=== PATIENT | male | born 1965 | race Caucasian/White ===

== ENCOUNTER 2019-09-25 10:39 | Inpatient (IN) | payer OTHER ==
[2019-09-25 11:42] VITALS: BMI 28.3
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
[2019-09-25] MEDS ORDERED: hydrOXYzine PAMOATE 25 MG CAPSULE (FP) PO PRN (12:40)
[2019-09-25] MEDS ORDERED: MAGNESIUM CITRATE 300 ML BOTTLE PO PRN (12:40)
[2019-09-25] MEDS ORDERED: MAGNESIUM HYDROX 2400MG/30ML ORAL SUSPENSION 30 ML CUP PO PRN (12:40)
[2019-09-25] MEDS ORDERED: cloNIDine HCL 0.1 MG TABLET PO PRN (12:40)
[2019-09-25] MEDS ORDERED: LOPERAMIDE HCL 2 MG CAPSULE PO PRN (12:40)
[2019-09-25] MEDS ORDERED: IBUPROFEN 400 MG TABLET (FP) PO PRN (12:40)
[2019-09-25] MEDS ORDERED: chlordiazePOXIDE HCL 25 MG CAPSULE PO PRN (12:40)
[2019-09-25] MEDS ORDERED: MAG HYDROX/AL HYDROX/SIMETH 30 ML UNIT-DOSE CUP PO PRN (12:40)
[2019-09-25] MEDS ORDERED: METHADONE HCL 10 MG TABLET (FOR DETOX USE ONLY) PO ONE ×2 (12:40→13:40)
[2019-09-25] MEDS ORDERED: guaiFENesin 200 MG/10 ML 10 ML UNIT-DOSE CUPS PO PRN (12:40)
[2019-09-25] MEDS ORDERED: P-EPHED 60MG/TRIPROLIDI 2.5MG TABLET PO PRN (12:40)
[2019-09-25] MEDS ORDERED: ACETAMINOPHEN 325 MG TABLET (FP) PO PRN (12:40)
[2019-09-25] MEDS ORDERED: MENTHOL/PHENOL 1 EACH UD MM PRN (12:40)
[2019-09-25] MEDS ORDERED: NICOTINE POLACRILEX 2 MG GUM BUC PRN (12:40)
[2019-09-25] MEDS ORDERED: HYDROCORTISONE 1% TOPICAL OINT 30 GM TUBE TP PRN (13:17)
[2019-09-25] MEDS: chlordiazePOXIDE HCL 25 MG CAPSULE PO SCH ×2 (18:07→22:42)
[2019-09-25] MEDS: TOLNAFTATE 1% CREAM 15 GM TUBE TP SCH (22:41)
[2019-09-25] MEDS: MELATONIN 5 MG TABLETS PO PRN (22:42)
[2019-09-25] MEDS: THIAMINE HCL 100 MG TABLET (FP) PO SCH (22:42)
[2019-09-26] MEDS: chlordiazePOXIDE HCL 25 MG CAPSULE PO SCH ×4 (05:52→22:23)
[2019-09-26 09:34] LABS: HEMATOCRIT 40.4 % (35.4-49); HEMOGLOBIN 13.8 GM/dL (11.7-16.9); MCH 31.5 pg (25.7-33.7); MCHC 34.1 g/dl (32.0-35.9); MEAN CELL VOLUME 92.3 fl (80-96); MEAN PLT VOLUME 9.1 fl (7.5-11.1); PLATELET COUNT 211 K/MM3 (134-434); RBC 4.37 M/mm3 (4.00-5.60); RDW 13.2 % (11.9-15.9); WHITE BLOOD COUNT 6.7 K/mm3 (4.0-10.0)
[2019-09-26 09:45] LABS: ALBUMIN 3.3 g/dl (3.4-5.0); BILIRUBIN,TOTAL 0.5 mg/dL (0.2-1); BLOOD UREA NITROGEN 12.1 mg/dL (7-18); CALCIUM 8.7 mg/dL (8.5-10.1); CREATININE 0.6 mg/dL (0.55-1.3); POTASSIUM 3.9 mmol/L (3.5-5.1); TOT PROT 6.1 g/dl (6.4-8.2)
[2019-09-26] MEDS ORDERED: METHADONE HCL 5 MG TABLET (FOR DETOX USE ONLY) PO ONE (10:00)
[2019-09-26] MEDS: PRENATAL VITAMINS W/ FOLIC ACID TABLET (FP) PO SCH (10:56)
[2019-09-26] MEDS: TOLNAFTATE 1% CREAM 15 GM TUBE TP SCH ×2 (10:57→22:24)
[2019-09-26] MEDS: NICOTINE 14 MG/24 HOURS TOPICAL PATCH TD SCH (10:57)
--- NOTE | 2019-09-26 13:21 | PN ---
[facility] CIWA - CIWA Score Nausea/Vomitin-Mild Nausea/No Vomiting Muscle Tremors: 3 Anxiety: 3 Agitation: 2 Paroxysmal Sweats: 3 Orientation: 0-Oriented Tacttile Disturbances: 0-None Auditory Disturbances: 0-None Visual Disturbances: 0-None Headache: 0-None Present CIWA-Ar Total Score: 12 S COWS - Scale Resting Pulse: 1= [place] 81-100 Sweatin= Chills/Flushing Restless Observation: 1= Difficult to Sit Still Pupil Size: 0= Normal to Room Light Bone or Joint Aches: 2= Severe Diffuse Aches Runny Nose/ Eye Tearin= Runny Nose/Eyes GI Upset > 30mins: 1= Stomach Cramp Tremor Observation of Outstretched Hands: 2= Slight Tremor Visible Yawning Observation: 0= None Anxiety or Irritability: 2=Irritable/Anxious Goose Flesh Skin: 0=Smooth Skin COWS Score: 12 S Progress Note (SOAP) Subjective: Diarrhea, chills, sweating, interrupted sleep Objective: 09/26/19 13:20 Last Vital Signs Temp Pulse Resp BP Pulse Ox 98.2 F 86 20 131/84 09/26/19 09:32 09/26/19 09:32 09/26/19 09:32 09/26/19 09:32 Elevated b/p: denies htn (on clonidine prn) Laboratory Tests 09/26/19 09/26/19 09/26/19 07:50 07:50 07:50 WBC 6.7 RBC 4.37 Hgb 13.8 Hct 40.4 MCV 92.3 MCH 31.5 MCHC 34.1 RDW 13.2 Plt Count 211 MPV 9.1 Sodium 137 Potassium 3.9 Chloride 103 Carbon Dioxide 29 Anion Gap 5 L BUN 12.1 Creatinine 0.6 Est GFR (CKD-EPI)AfAm 132.11 Est GFR (CKD-EPI)NonAf 113.99 Random Glucose 96 Calcium 8.7 Total Bilirubin 0.5 AST 14 L ALT 21 Alkaline Phosphatase 74 Total Protein 6.1 L Albumin 3.3 L RPR Titer Nonreactive Labs reviewed: total protein 6.1 (low), albumin 3.3 (low) Assessment: 09/26/19 13:23 Withdrawal sxs Noted with elevated b/p, low total protein and low albumin Plan: Continue detox Encouraged PO water intake Elevated b/p: most likely r/t withdrawal as pt denies any h/o HTN, monitor b/p, continue clonidine prn Low total protein and low albumin, mild: encouraged diet
--- NOTE | 2019-09-26 17:03 | CONSULT ---
[facility] Psychiatric Consult - Data Date of interview: 09/26/19 Psychiatric History: Patient was approached at bedside while asleep. 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 Please reconsult when patient is appropriate for interview
[2019-09-26] MEDS: THIAMINE HCL 100 MG TABLET (FP) PO SCH (22:23)
[2019-09-26] MEDS: MELATONIN 5 MG TABLETS PO PRN (22:26)
[2019-09-27] MEDS: chlordiazePOXIDE HCL 25 MG CAPSULE PO SCH ×4 (05:44→22:35)
[2019-09-27] MEDS ORDERED: METHADONE HCL 10 MG TABLET (FOR DETOX USE ONLY) PO ONE (10:00)
[2019-09-27] MEDS: PRENATAL VITAMINS W/ FOLIC ACID TABLET (FP) PO SCH (10:33)
[2019-09-27] MEDS: TOLNAFTATE 1% CREAM 15 GM TUBE TP SCH ×2 (10:35→22:39)
[2019-09-27] MEDS: NICOTINE 14 MG/24 HOURS TOPICAL PATCH TD SCH (10:35)
--- NOTE | 2019-09-27 11:04 | EKG ---
Test Reason : Blood Pressure : / mmHG Vent. Rate : 053 BPM Atrial Rate : 053 BPM P-R Int : 162 ms QRS Dur : 094 ms QT Int : 422 ms P-R-T Axes : 070 053 045 degrees QTc Int : 395 ms SINUS BRADYCARDIA OTHERWISE NORMAL ECG NO PREVIOUS ECGS AVAILABLE Confirmed by SOPHIE TARANGO MD ([id number]) on 09/27/2019 11:04:30 AM Referred By: Confirmed By:SOPHIE TARANGO MD
--- NOTE | 2019-09-27 11:34 | PN ---
[facility] CIWA - CIWA Score Nausea/Vomitin-Mild Nausea/No Vomiting Muscle Tremors: 1-None Visible, but [place] Anxiety: 2 Agitation: 2 Paroxysmal Sweats: No Perspiration Orientation: 0-Oriented Tacttile Disturbances: 1-Very Mild Itch/Numbness Auditory Disturbances: 0-None Visual Disturbances: 0-None Headache: 1-Very Mild CIWA-Ar Total Score: 8 S COWS - Scale Resting Pulse: 1= [place] 81-100 Sweatin= No chills or Flushing Restless Observation: 1= Difficult to Sit Still Pupil Size: 1= Pupils >than Normal Bone or Joint Aches: 1= Mild Discomfort Runny Nose/ Eye Tearin= Nasal Congestion GI Upset > 30mins: 1= Stomach Cramp Tremor Observation of Outstretched Hands: 1= Tremor [place], Not Seen Yawning Observation: 1= 1-2x During Session Anxiety or Irritability: 2=Irritable/Anxious Goose Flesh Skin: 0=Smooth Skin COWS Score: 10 [facility] Progress Note (SOAP) Subjective: alert,irritable,anxious,interrupted sleep,tremor Objective: 09/27/19 11:32 Vital Signs Temperature 98.4 F 09/27/19 09:18 Pulse Rate 97 H 09/27/19 09:18 Respiratory Rate 16 09/27/19 09:18 Blood Pressure 105/66 09/27/19 09:18 O2 Sat by Pulse Oximetry (%) 09/27/19 11:33 Laboratory Last Values WBC 6.7 K/mm3 (4.0-10.0) 09/26/19 07:50 RBC 4.37 M/mm3 (4.00-5.60) 09/26/19 07:50 Hgb 13.8 GM/dL (11.7-16.9) 09/26/19 07:50 Hct 40.4 % (35.4-49) 09/26/19 07:50 MCV 92.3 fl (80-96) 09/26/19 07:50 MCH 31.5 pg (25.7-33.7) 09/26/19 07:50 MCHC 34.1 g/dl (32.0-35.9) 09/26/19 07:50 RDW 13.2 % (11.9-15.9) 09/26/19 07:50 Plt Count 211 K/MM3 (134-434) 09/26/19 07:50 MPV 9.1 fl (7.5-11.1) 09/26/19 07:50 Sodium 137 mmol/L (136-145) 09/26/19 07:50 Potassium 3.9 mmol/L (3.5-5.1) 09/26/19 07:50 Chloride 103 mmol/L (98-107) 09/26/19 07:50 Carbon Dioxide 29 mmol/L (21-32) 09/26/19 07:50 Anion Gap 5 MMOL/L (8-16) L 09/26/19 07:50 BUN 12.1 mg/dL (7-18) 09/26/19 07:50 Creatinine 0.6 mg/dL (0.55-1.3) 09/26/19 07:50 Est GFR (CKD-EPI)AfAm 132.11 09/26/19 07:50 Est GFR (CKD-EPI)NonAf 113.99 09/26/19 07:50 Random Glucose 96 mg/dL (74-106) 09/26/19 07:50 Calcium 8.7 mg/dL (8.5-10.1) 09/26/19 07:50 Total Bilirubin 0.5 mg/dL (0.2-1) 09/26/19 07:50 AST 14 U/L (15-37) L 09/26/19 07:50 ALT 21 U/L (13-61) 09/26/19 07:50 Alkaline Phosphatase 74 U/L (45-117) 09/26/19 07:50 Total Protein 6.1 g/dl (6.4-8.2) L 09/26/19 07:50 Albumin 3.3 g/dl (3.4-5.0) L 09/26/19 07:50 RPR Titer Nonreactive (NONREACTIVE) 09/26/19 07:50 Assessment: 09/27/19 11:32 withdrawal symptom Plan: continue detox methadone and librium regimen
[2019-09-27] MEDS: METHOCARBAMOL 500 MG TABLET PO PRN (18:15)
[2019-09-27] MEDS: THIAMINE HCL 100 MG TABLET (FP) PO SCH (22:35)
[2019-09-27] MEDS: MELATONIN 5 MG TABLETS PO PRN (22:39)
[2019-09-28] MEDS ORDERED: chlordiazePOXIDE HCL 10 MG CAPSULE PO PRN
[2019-09-28] MEDS ORDERED: chlordiazePOXIDE HCL 10 MG CAPSULE PO SCH (05:00)
[2019-09-28] MEDS: METHOCARBAMOL 500 MG TABLET PO PRN (05:43)
[2019-09-28] MEDS ORDERED: METHADONE HCL 5 MG TABLET (FOR DETOX USE ONLY) PO ONE (06:00)
--- NOTE | 2019-09-28 08:02 | CONSULT ---
[facility] Psychiatric Consult - Data Date of interview: 09/28/19 Admission source: Self-referred Identifying data: Mr Parry is a 54 years old male, unemployed receiving SSI, domiciled seeking detox treatment for alcohol, opioid and cocaine Substance Abuse History: Reports history of alcohol, heroin and cocaine use. Refer to addiction counselor/s summary for further information
[2019-09-28 09:21] VITALS: BP 126/88; PULSE 108; TEMP 96.8
--- NOTE | 2019-09-28 09:27 | PN ---
[facility] CIWA - CIWA Score Nausea/Vomitin-No Nausea/No Vomiting Muscle Tremors: 1-None Visible, but [place] Anxiety: 1-Mildly Anxious Agitation: 1-Slight > Activity Paroxysmal Sweats: No Perspiration Orientation: 0-Oriented Tacttile Disturbances: 0-None Auditory Disturbances: 0-None Visual Disturbances: 0-None Headache: 0-None Present CIWA-Ar Total Score: 3 S COWS - Scale Resting Pulse: 0= [place] 80 or Below Sweatin= No chills or Flushing Restless Observation: 0= Sits Still Pupil Size: 0= Normal to Room Light Bone or Joint Aches: 1= Mild Discomfort Runny Nose/ Eye Tearin= None GI Upset > 30mins: 0= None Tremor Observation of Outstretched Hands: 0= None Yawning Observation: 0= None Anxiety or Irritability: 0= None Goose Flesh Skin: 0=Smooth Skin COWS Score: 1 [facility] Progress Note (SOAP) Subjective: alert,no complaint Objective: 09/28/19 09:25 Vital Signs Temperature 96.8 F L 09/28/19 09:21 Pulse Rate 108 H 09/28/19 09:21 Respiratory Rate 18 09/28/19 09:21 Blood Pressure 126/88 09/28/19 09:21 O2 Sat by Pulse Oximetry (%) Laboratory Last Values WBC 6.7 K/mm3 (4.0-10.0) 09/26/19 07:50 RBC 4.37 M/mm3 (4.00-5.60) 09/26/19 07:50 Hgb 13.8 GM/dL (11.7-16.9) 09/26/19 07:50 Hct 40.4 % (35.4-49) 09/26/19 07:50 MCV 92.3 fl (80-96) 09/26/19 07:50 MCH 31.5 pg (25.7-33.7) 09/26/19 07:50 MCHC 34.1 g/dl (32.0-35.9) 09/26/19 07:50 RDW 13.2 % (11.9-15.9) 09/26/19 07:50 Plt Count 211 K/MM3 (134-434) 09/26/19 07:50 MPV 9.1 fl (7.5-11.1) 09/26/19 07:50 Sodium 137 mmol/L (136-145) 09/26/19 07:50 Potassium 3.9 mmol/L (3.5-5.1) 09/26/19 07:50 Chloride 103 mmol/L (98-107) 09/26/19 07:50 Carbon Dioxide 29 mmol/L (21-32) 09/26/19 07:50 Anion Gap 5 MMOL/L (8-16) L 09/26/19 07:50 BUN 12.1 mg/dL (7-18) 09/26/19 07:50 Creatinine 0.6 mg/dL (0.55-1.3) 09/26/19 07:50 Est GFR (CKD-EPI)AfAm 132.11 09/26/19 07:50 Est GFR (CKD-EPI)NonAf 113.99 09/26/19 07:50 Random Glucose 96 mg/dL (74-106) 09/26/19 07:50 Calcium 8.7 mg/dL (8.5-10.1) 09/26/19 07:50 Total Bilirubin 0.5 mg/dL (0.2-1) 09/26/19 07:50 AST 14 U/L (15-37) L 09/26/19 07:50 ALT 21 U/L (13-61) 09/26/19 07:50 Alkaline Phosphatase 74 U/L (45-117) 09/26/19 07:50 Total Protein 6.1 g/dl (6.4-8.2) L 09/26/19 07:50 Albumin 3.3 g/dl (3.4-5.0) L 09/26/19 07:50 RPR Titer Nonreactive (NONREACTIVE) 09/26/19 07:50 Assessment: 09/28/19 09:25 detox completed,no withdrawal symptom Plan: discharge today,follow up with after care program as arrangement
--- NOTE | 2019-09-28 09:29 | DS ---
[facility] Detox Discharge Summary Admission Date: 09/25/19 Discharge Date: 09/28/19 - History Present History: Alcohol Dependence, Opioid Dependence Additional Comments: follow up with after care program as arrangement Pertinent Past History: nicotine dependence - Physical Exam Results Vital Signs: Vital Signs Temperature 96.8 F L 09/28/19 09:21 Pulse Rate 108 H 09/28/19 09:21 Respiratory Rate 18 09/28/19 09:21 Blood Pressure 126/88 09/28/19 09:21 O2 Sat by Pulse Oximetry (%) Pertinent Admission Physical Exam Findings: withdrawal signs and symptom Laboratory Last Values WBC 6.7 K/mm3 (4.0-10.0) 09/26/19 07:50 RBC 4.37 M/mm3 (4.00-5.60) 09/26/19 07:50 Hgb 13.8 GM/dL (11.7-16.9) 09/26/19 07:50 Hct 40.4 % (35.4-49) 09/26/19 07:50 MCV 92.3 fl (80-96) 09/26/19 07:50 MCH 31.5 pg (25.7-33.7) 09/26/19 07:50 MCHC 34.1 g/dl (32.0-35.9) 09/26/19 07:50 RDW 13.2 % (11.9-15.9) 09/26/19 07:50 Plt Count 211 K/MM3 (134-434) 09/26/19 07:50 MPV 9.1 fl (7.5-11.1) 09/26/19 07:50 Sodium 137 mmol/L (136-145) 09/26/19 07:50 Potassium 3.9 mmol/L (3.5-5.1) 09/26/19 07:50 Chloride 103 mmol/L (98-107) 09/26/19 07:50 Carbon Dioxide 29 mmol/L (21-32) 09/26/19 07:50 Anion Gap 5 MMOL/L (8-16) L 09/26/19 07:50 BUN 12.1 mg/dL (7-18) 09/26/19 07:50 Creatinine 0.6 mg/dL (0.55-1.3) 09/26/19 07:50 Est GFR (CKD-EPI)AfAm 132.11 09/26/19 07:50 Est GFR (CKD-EPI)NonAf 113.99 09/26/19 07:50 Random Glucose 96 mg/dL (74-106) 09/26/19 07:50 Calcium 8.7 mg/dL (8.5-10.1) 09/26/19 07:50 Total Bilirubin 0.5 mg/dL (0.2-1) 09/26/19 07:50 AST 14 U/L (15-37) L 09/26/19 07:50 ALT 21 U/L (13-61) 09/26/19 07:50 Alkaline Phosphatase 74 U/L (45-117) 09/26/19 07:50 Total Protein 6.1 g/dl (6.4-8.2) L 09/26/19 07:50 Albumin 3.3 g/dl (3.4-5.0) L 09/26/19 07:50 RPR Titer Nonreactive (NONREACTIVE) 09/26/19 07:50 Vital Signs Temperature 96.8 F L 09/28/19 09:21 Pulse Rate 108 H 09/28/19 09:21 Respiratory Rate 18 09/28/19 09:21 Blood Pressure 126/88 09/28/19 09:21 O2 Sat by Pulse Oximetry (%) - Treatment Hospital Course: Detox Protocol Followed, Detoxed Safely, Responded well, Discharged Condition Good Patient has Accepted a Rehab Referral to: declined - Medication Discharge Medications: Ambulatory Orders NK [No Known Home Medication] 09/25/19 - AMA Did Patient Leave Against Medical Advice: No
[2019-09-29] MEDS ORDERED: chlordiazePOXIDE HCL 10 MG CAPSULE PO SCH (05:00)
[2019-09-30] MEDS ORDERED: chlordiazePOXIDE HCL 10 MG CAPSULE PO ONE (05:00)
== END 2019-09-28 09:45 | disposition home or self-care (01) | DRG 773 ==
LOC: YASAS 10:39 → Y6N 13:12
PROVIDERS: ADMIT Allergy & Immunology; ATTEND Allergy & Immunology
PROC: HZ2ZZZZ Detoxification Services for Substance Abuse Treatment (ICD-10-PCS; principal; 2019-09-25)
DX: F11.23 Opioid dependence with withdrawal (principal); F10.230 Alcohol dependence with withdrawal, uncomplicated; F17.210 Nicotine dependence, cigarettes, uncomplicated; R03.0 Elevated blood-pressure reading, without diagnosis of hypertension; R77.0 Abnormality of albumin; R77.9 Abnormality of plasma protein, unspecified; L74.0 Miliaria rubra; Z91.018 Allergy to other foods; Z59.0 Homelessness
CPT/HCPCS: 36415; 80053; 85027; 86593; 93005; 93010; J0735

== ENCOUNTER 2019-12-23 11:31 | Inpatient (IN) | payer OTHER ==
[2019-12-23 12:45] VITALS: BMI 30.4
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
[2019-12-23] MEDS ORDERED: ACETAMINOPHEN 325 MG TABLET (FP) PO PRN ×2 (13:17)
[2019-12-23] MEDS ORDERED: METHOCARBAMOL 500 MG TABLET PO PRN (13:17)
[2019-12-23] MEDS ORDERED: hydrOXYzine PAMOATE 25 MG CAPSULE (FP) PO PRN (13:17)
[2019-12-23] MEDS ORDERED: MAG HYDROX/AL HYDROX/SIMETH 30 ML UNIT-DOSE CUP PO PRN (13:17)
[2019-12-23] MEDS ORDERED: MENTHOL/PHENOL 1 EACH UD MM PRN (13:17)
[2019-12-23] MEDS ORDERED: MAGNESIUM CITRATE 300 ML BOTTLE PO PRN (13:17)
[2019-12-23] MEDS ORDERED: BISMUTH SUBSALICYLATE 262 MG/15 ML BTL PO PRN (13:17)
[2019-12-23] MEDS ORDERED: IBUPROFEN 400 MG TABLET (FP) PO PRN (13:17)
[2019-12-23] MEDS ORDERED: MAGNESIUM HYDROX 2400MG/30ML ORAL SUSPENSION 30 ML CUP PO PRN (13:17)
[2019-12-23] MEDS ORDERED: cloNIDine HCL 0.1 MG TABLET PO PRN (13:17)
[2019-12-23] MEDS ORDERED: chlordiazePOXIDE HCL 25 MG CAPSULE PO PRN (13:17)
[2019-12-23] MEDS ORDERED: METHADONE HCL 10 MG TABLET (FOR DETOX USE ONLY) PO ONE (14:40)
[2019-12-23] MEDS: chlordiazePOXIDE HCL 25 MG CAPSULE PO SCH ×2 (17:48→22:13)
[2019-12-23] MEDS: MELATONIN 5 MG TABLETS PO PRN (22:13)
[2019-12-23] MEDS: THIAMINE HCL 100 MG TABLET (FP) PO SCH (22:13)
[2019-12-24] MEDS: chlordiazePOXIDE HCL 25 MG CAPSULE PO SCH ×4 (06:08→22:15)
[2019-12-24] MEDS ORDERED: METHADONE HCL 10 MG TABLET (FOR DETOX USE ONLY) ONE (09:23)
[2019-12-24] MEDS ORDERED: METHADONE HCL 5 MG TABLET (FOR DETOX USE ONLY) ONE (09:24)
[2019-12-24] MEDS ORDERED: METHADONE (DETOX) 20 MG, METHADONE (DETOX) 5 MG PO ONE (10:00)
[2019-12-24 10:15] LABS: HEMOGLOBIN 13.2 GM/dL (11.7-16.9); MCH 31.5 pg (25.7-33.7); MEAN CELL VOLUME 92.6 fl (80-96); MEAN PLT VOLUME 9.5 fl (7.5-11.1); PLATELET COUNT 163 K/MM3 (134-434); RBC 4.21 M/mm3 (4.00-5.60); RDW 13.7 % (11.9-15.9); WHITE BLOOD COUNT 4.6 K/mm3 (4.0-10.0)
[2019-12-24 10:28] LABS: ALBUMIN 3.1 g/dl (3.4-5.0); BILIRUBIN,TOTAL 0.4 mg/dL (0.2-1); BLOOD UREA NITROGEN 19.8 mg/dL (7-18); CALCIUM 8.2 mg/dL (8.5-10.1); CREATININE 0.7 mg/dL (0.55-1.3); POTASSIUM 3.9 mmol/L (3.5-5.1); TOT PROT 5.8 g/dl (6.4-8.2)
[2019-12-24] MEDS: PRENATAL VITAMINS W/ FOLIC ACID TABLET (FP) PO SCH (10:34)
[2019-12-24] MEDS: NICOTINE 14 MG/24 HOURS TOPICAL PATCH TD SCH (10:35)
--- NOTE | 2019-12-24 11:13 | PN ---
[facility] CIWA - CIWA Score Nausea/Vomitin-Mild Nausea/No Vomiting Muscle Tremors: 2 Anxiety: 2 Agitation: 3 Paroxysmal Sweats: 1-Minimal Palms Moist Orientation: 0-Oriented Tacttile Disturbances: 0-None Auditory Disturbances: 0-None Visual Disturbances: 0-None Headache: 0-None Present CIWA-Ar Total Score: 9 S COWS - Scale Resting Pulse: 0= [place] 80 or Below Sweatin= Chills/Flushing Restless Observation: 1= Difficult to Sit Still Pupil Size: 0= Normal to Room Light Bone or Joint Aches: 2= Severe Diffuse Aches Runny Nose/ Eye Tearin= Nasal Congestion GI Upset > 30mins: 1= Stomach Cramp Tremor Observation of Outstretched Hands: 1= Tremor [place], Not Seen Yawning Observation: 0= None Anxiety or Irritability: 0= None Goose Flesh Skin: 0=Smooth Skin COWS Score: 7 S Progress Note (SOAP) Subjective: Patient was seen in bed but communicative. Main complaints are consistent with withdrawals. Generalized aches, some tremors and some nausea. Objective: 12/24/19 11:14 Vitals: BP: 107/54 P: 60 R: 18 T: 98.9 Laboratory 12/24/19 12/24/19 08:30 08:30 WBC 4.6 K/mm3 K/mm3 (4.0-10.0) RBC 4.21 M/mm3 M/mm3 (4.00-5.60) Hgb 13.2 GM/dL GM/dL (11.7-16.9) Hct 39.0 % % (35.4-49) MCV 92.6 fl fl (80-96) MCH 31.5 pg pg (25.7-33.7) MCHC 34.0 g/dl g/dl (32.0-35.9) RDW 13.7 % % (11.9-15.9) Plt Count 163 K/MM3 D K/MM3 (134-434) MPV 9.5 fl fl (7.5-11.1) Sodium 139 mmol/L mmol/L (136-145) Potassium 3.9 mmol/L mmol/L (3.5-5.1) Chloride 108 mmol/L H mmol/L (98-107) Carbon Dioxide 27 mmol/L mmol/L (21-32) Anion Gap 5 MMOL/L L MMOL/L (8-16) BUN 19.8 mg/dL H mg/dL (7-18) Creatinine 0.7 mg/dL mg/dL (0.55-1.3) Est GFR (CKD-EPI)AfAm 124.00 Est GFR (CKD-EPI)NonAf 106.99 Random Glucose 89 mg/dL mg/dL (74-106) Calcium 8.2 mg/dL L mg/dL (8.5-10.1) Total Bilirubin 0.4 mg/dL mg/dL (0.2-1) AST 18 U/L U/L (15-37) ALT 22 U/L U/L (13-61) Alkaline Phosphatase 70 U/L U/L (45-117) Total Protein 5.8 g/dl L g/dl (6.4-8.2) Albumin 3.1 g/dl L g/dl (3.4-5.0) Assessment: 12/24/19 11:15 1. Alcohol Dependence with withdrawal 2. Opioid Dependence with withdrawal 3. Dehydration 12/24/19 11:17 Plan: 1.Continue Librium detox protocol 2. Continue methadone detox protocol and encourage po hydration 3. abnormal labs seen but consistent with dehydration and alcohol transaminitis. Dr. Gonzalez
--- NOTE | 2019-12-24 12:49 | EKG ---
Test Reason : Blood Pressure : / mmHG Vent. Rate : 051 BPM Atrial Rate : 051 BPM P-R Int : 162 ms QRS Dur : 094 ms QT Int : 422 ms P-R-T Axes : 065 034 038 degrees QTc Int : 388 ms SINUS BRADYCARDIA NONSPECIFIC INTRAVENTRICULAR CONDUCTION DEFECT WHEN COMPARED WITH ECG OF 25-SEP-2019 13:06, NO SIGNIFICANT CHANGE WAS FOUND Confirmed by GEENA FRAZIER MD ([id number]) on 12/24/2019 12:48:54 PM Referred By: Confirmed By:GEENA FRAZIER MD
[2019-12-24] MEDS: THIAMINE HCL 100 MG TABLET (FP) PO SCH (22:15)
[2019-12-24] MEDS: MELATONIN 5 MG TABLETS PO PRN (22:16)
[2019-12-25] MEDS: chlordiazePOXIDE HCL 25 MG CAPSULE PO SCH ×4 (06:05→22:22)
[2019-12-25] MEDS ORDERED: METHADONE HCL 10 MG TABLET (FOR DETOX USE ONLY) PO ONE (10:00)
[2019-12-25] MEDS: NICOTINE 14 MG/24 HOURS TOPICAL PATCH TD SCH (11:03)
[2019-12-25] MEDS: PRENATAL VITAMINS W/ FOLIC ACID TABLET (FP) PO SCH (11:04)
--- NOTE | 2019-12-25 12:27 | PN ---
[facility] CIWA - CIWA Score Nausea/Vomitin-No Nausea/No Vomiting Muscle Tremors: None Anxiety: 3 Agitation: 1-Slight > Activity Paroxysmal Sweats: 3 Orientation: 0-Oriented Tacttile Disturbances: 0-None Auditory Disturbances: 0-None Visual Disturbances: 0-None Headache: 1-Very Mild CIWA-Ar Total Score: 8 S COWS - Scale Resting Pulse: 0= [place] 80 or Below Sweatin= Chills/Flushing Restless Observation: 1= Difficult to Sit Still Pupil Size: 0= Normal to Room Light Bone or Joint Aches: 1= Mild Discomfort Runny Nose/ Eye Tearin= None GI Upset > 30mins: 0= None Tremor Observation of Outstretched Hands: 0= None Yawning Observation: 1= 1-2x During Session Anxiety or Irritability: 2=Irritable/Anxious Goose Flesh Skin: 0=Smooth Skin COWS Score: 6 S Progress Note (SOAP) Subjective: c/o muscle aches, headache, back pain, sweats, and anxiety. Objective: 12/25/19 12:26 Vital Signs 12/25/19 12/25/19 06:47 09:15 Temperature 97.4 F L 98.4 F Pulse Rate 54 L 54 L Respiratory 18 16 Rate Blood Pressure 123/74 127/75 Laboratory Last Values WBC 4.6 K/mm3 (4.0-10.0) 12/24/19 08:30 RBC 4.21 M/mm3 (4.00-5.60) 12/24/19 08:30 Hgb 13.2 GM/dL (11.7-16.9) 12/24/19 08:30 Hct 39.0 % (35.4-49) 12/24/19 08:30 MCV 92.6 fl (80-96) 12/24/19 08:30 MCH 31.5 pg (25.7-33.7) 12/24/19 08:30 MCHC 34.0 g/dl (32.0-35.9) 12/24/19 08:30 RDW 13.7 % (11.9-15.9) 12/24/19 08:30 Plt Count 163 K/MM3 (134-434) D 12/24/19 08:30 MPV 9.5 fl (7.5-11.1) 12/24/19 08:30 Sodium 139 mmol/L (136-145) 12/24/19 08:30 Potassium 3.9 mmol/L (3.5-5.1) 12/24/19 08:30 Chloride 108 mmol/L (98-107) H 12/24/19 08:30 Carbon Dioxide 27 mmol/L (21-32) 12/24/19 08:30 Anion Gap 5 MMOL/L (8-16) L 12/24/19 08:30 BUN 19.8 mg/dL (7-18) H 12/24/19 08:30 Creatinine 0.7 mg/dL (0.55-1.3) 12/24/19 08:30 Est GFR (CKD-EPI)AfAm 124.00 12/24/19 08:30 Est GFR (CKD-EPI)NonAf 106.99 12/24/19 08:30 Random Glucose 89 mg/dL (74-106) 12/24/19 08:30 Calcium 8.2 mg/dL (8.5-10.1) L 12/24/19 08:30 Total Bilirubin 0.4 mg/dL (0.2-1) 12/24/19 08:30 AST 18 U/L (15-37) 12/24/19 08:30 ALT 22 U/L (13-61) 12/24/19 08:30 Alkaline Phosphatase 70 U/L (45-117) 12/24/19 08:30 Total Protein 5.8 g/dl (6.4-8.2) L 12/24/19 08:30 Albumin 3.1 g/dl (3.4-5.0) L 12/24/19 08:30 RPR Titer Nonreactive (NONREACTIVE) 12/24/19 08:30 Labs noted. Assessment: 12/25/19 12:26 AOX3, in no acute respiratory distress. Full ROM, ambulating in the unit. Withdrawal symptoms. Plan: continue detox.
[2019-12-25] MEDS: THIAMINE HCL 100 MG TABLET (FP) PO SCH (22:22)
[2019-12-26] MEDS ORDERED: chlordiazePOXIDE HCL 10 MG CAPSULE PO PRN
[2019-12-26] MEDS: chlordiazePOXIDE HCL 10 MG CAPSULE PO SCH ×4 (06:06→22:06)
[2019-12-26] MEDS ORDERED: METHADONE (DETOX) 10 MG, METHADONE (DETOX) 5 MG PO ONE (10:00)
[2019-12-26] MEDS: NICOTINE 14 MG/24 HOURS TOPICAL PATCH TD SCH (10:20)
[2019-12-26] MEDS ORDERED: METHADONE HCL 5 MG TABLET (FOR DETOX USE ONLY) ONE (10:21)
[2019-12-26] MEDS ORDERED: METHADONE HCL 10 MG TABLET (FOR DETOX USE ONLY) ONE (10:21)
[2019-12-26] MEDS: PRENATAL VITAMINS W/ FOLIC ACID TABLET (FP) PO SCH (10:22)
--- NOTE | 2019-12-26 11:36 | PN ---
[facility] CIWA - CIWA Score Nausea/Vomitin-No Nausea/No Vomiting Muscle Tremors: 2 Anxiety: 2 Agitation: 0-Normal Activity Paroxysmal Sweats: 1-Minimal Palms Moist Orientation: 0-Oriented Tacttile Disturbances: 0-None Auditory Disturbances: 0-None Visual Disturbances: 0-None Headache: 0-None Present CIWA-Ar Total Score: 5 S COWS - Scale Resting Pulse: 0= [place] 80 or Below Sweatin= Chills/Flushing Restless Observation: 0= Sits Still Pupil Size: 1= Pupils >than Normal Bone or Joint Aches: 1= Mild Discomfort Runny Nose/ Eye Tearin= None GI Upset > 30mins: 0= None Tremor Observation of Outstretched Hands: 2= Slight Tremor Visible Yawning Observation: 0= None Anxiety or Irritability: 0= None Goose Flesh Skin: 0=Smooth Skin COWS Score: 5 S Progress Note (SOAP) Subjective: 54 years old male admitted on 12/23/19 for alcohol and opiate withdrawal sx management treating with librium and methadone detox regiments feeling ok today discussed the benefits of behavior and psychosocial therapies while in the detox Objective: 12/26/19 11:38 Vital Signs Temperature 97.3 F L 12/26/19 09:08 Pulse Rate 63 12/26/19 09:08 Respiratory Rate 16 12/26/19 09:08 Blood Pressure 129/82 12/26/19 09:08 O2 Sat by Pulse Oximetry (%) Laboratory Last Values WBC 4.6 K/mm3 (4.0-10.0) 12/24/19 08:30 RBC 4.21 M/mm3 (4.00-5.60) 12/24/19 08:30 Hgb 13.2 GM/dL (11.7-16.9) 12/24/19 08:30 Hct 39.0 % (35.4-49) 12/24/19 08:30 MCV 92.6 fl (80-96) 12/24/19 08:30 MCH 31.5 pg (25.7-33.7) 12/24/19 08:30 MCHC 34.0 g/dl (32.0-35.9) 12/24/19 08:30 RDW 13.7 % (11.9-15.9) 12/24/19 08:30 Plt Count 163 K/MM3 (134-434) D 12/24/19 08:30 MPV 9.5 fl (7.5-11.1) 12/24/19 08:30 Sodium 139 mmol/L (136-145) 12/24/19 08:30 Potassium 3.9 mmol/L (3.5-5.1) 12/24/19 08:30 Chloride 108 mmol/L (98-107) H 12/24/19 08:30 Carbon Dioxide 27 mmol/L (21-32) 12/24/19 08:30 Anion Gap 5 MMOL/L (8-16) L 12/24/19 08:30 BUN 19.8 mg/dL (7-18) H 12/24/19 08:30 Creatinine 0.7 mg/dL (0.55-1.3) 12/24/19 08:30 Est GFR (CKD-EPI)AfAm 124.00 12/24/19 08:30 Est GFR (CKD-EPI)NonAf 106.99 12/24/19 08:30 Random Glucose 89 mg/dL (74-106) 12/24/19 08:30 Calcium 8.2 mg/dL (8.5-10.1) L 12/24/19 08:30 Total Bilirubin 0.4 mg/dL (0.2-1) 12/24/19 08:30 AST 18 U/L (15-37) 12/24/19 08:30 ALT 22 U/L (13-61) 12/24/19 08:30 Alkaline Phosphatase 70 U/L (45-117) 12/24/19 08:30 Total Protein 5.8 g/dl (6.4-8.2) L 12/24/19 08:30 Albumin 3.1 g/dl (3.4-5.0) L 12/24/19 08:30 RPR Titer Nonreactive (NONREACTIVE) 12/24/19 08:30 lab noted Assessment: 12/26/19 11:39 alcohol and opiate withdrawal Plan: librium and methadone regiments
[2019-12-26] MEDS: THIAMINE HCL 100 MG TABLET (FP) PO SCH (22:06)
[2019-12-26] MEDS: MELATONIN 5 MG TABLETS PO PRN (22:06)
[2019-12-27] MEDS ORDERED: chlordiazePOXIDE HCL 10 MG CAPSULE PO SCH (05:00)
[2019-12-27 09:30] VITALS: BP 120/70; PULSE 54; TEMP 97.2
[2019-12-27] MEDS ORDERED: METHADONE HCL 10 MG TABLET (FOR DETOX USE ONLY) PO ONE (10:00)
--- NOTE | 2019-12-27 12:35 | DS ---
[facility] Detox Discharge Summary Admission Date: 12/23/19 Discharge Date: 12/27/19 - History Present History: Alcohol Dependence, Opioid Dependence Additional Comments: 54 years old male admitted on 12/23/19 for alcohol and opiate withdrawal sx management treatd with librium and methadone detox regiments patient prefers to leave the detox unit one day earlier than estimated discharge date of 12/28/19 patient is alert oriented x 4 speech clearly coherently ambulating with steady gait case discussed with the nurse routine discharge is appropriated respiratory clear lungs bilaterally on auscultation abdomen soft round obese non tenderness skin warm and dry - Physical Exam Results Vital Signs: Vital Signs Temperature 97.2 F L 12/27/19 08:49 Pulse Rate 54 L 12/27/19 08:49 Respiratory Rate 18 12/27/19 08:49 Blood Pressure 120/70 12/27/19 08:49 O2 Sat by Pulse Oximetry (%) Pertinent Admission Physical Exam Findings: alcohol and opiate withdrawal Laboratory Last Values WBC 4.6 K/mm3 (4.0-10.0) 12/24/19 08:30 RBC 4.21 M/mm3 (4.00-5.60) 12/24/19 08:30 Hgb 13.2 GM/dL (11.7-16.9) 12/24/19 08:30 Hct 39.0 % (35.4-49) 12/24/19 08:30 MCV 92.6 fl (80-96) 12/24/19 08:30 MCH 31.5 pg (25.7-33.7) 12/24/19 08:30 MCHC 34.0 g/dl (32.0-35.9) 12/24/19 08:30 RDW 13.7 % (11.9-15.9) 12/24/19 08:30 Plt Count 163 K/MM3 (134-434) D 12/24/19 08:30 MPV 9.5 fl (7.5-11.1) 12/24/19 08:30 Sodium 139 mmol/L (136-145) 12/24/19 08:30 Potassium 3.9 mmol/L (3.5-5.1) 12/24/19 08:30 Chloride 108 mmol/L (98-107) H 12/24/19 08:30 Carbon Dioxide 27 mmol/L (21-32) 12/24/19 08:30 Anion Gap 5 MMOL/L (8-16) L 12/24/19 08:30 BUN 19.8 mg/dL (7-18) H 12/24/19 08:30 Creatinine 0.7 mg/dL (0.55-1.3) 12/24/19 08:30 Est GFR (CKD-EPI)AfAm 124.00 12/24/19 08:30 Est GFR (CKD-EPI)NonAf 106.99 12/24/19 08:30 Random Glucose 89 mg/dL (74-106) 12/24/19 08:30 Calcium 8.2 mg/dL (8.5-10.1) L 12/24/19 08:30 Total Bilirubin 0.4 mg/dL (0.2-1) 12/24/19 08:30 AST 18 U/L (15-37) 12/24/19 08:30 ALT 22 U/L (13-61) 12/24/19 08:30 Alkaline Phosphatase 70 U/L (45-117) 12/24/19 08:30 Total Protein 5.8 g/dl (6.4-8.2) L 12/24/19 08:30 Albumin 3.1 g/dl (3.4-5.0) L 12/24/19 08:30 RPR Titer Nonreactive (NONREACTIVE) 12/24/19 08:30 lab noted - Treatment Hospital Course: Detox Protocol Followed, Detoxed Safely, Responded well, Discharged Condition Good, Rehab Referral Accepted Patient has Accepted a Rehab Referral to: community support approach - Medication Discharge Medications: Ambulatory Orders NK [No Known Home Medication] 09/25/19 - Diagnosis (1) Alcohol dependence with withdrawal, uncomplicated Status: Acute (2) Nicotine dependence Status: Acute Qualifiers: Nicotine product type: cigarettes Substance use status: in withdrawal Qualified Code(s): F17.213 - Nicotine dependence, cigarettes, with withdrawal - AMA Did Patient Leave Against Medical Advice: No CIWA Score - CIWA Score Nausea/Vomitin-No Nausea/No Vomiting Muscle Tremors: 1-None Visible, but [place] Anxiety: 1-Mildly Anxious Agitation: 0-Normal Activity Paroxysmal Sweats: No Perspiration Orientation: 0-Oriented Tacttile Disturbances: 0-None Auditory Disturbances: 0-None Visual Disturbances: 0-None Headache: 0-None Present CIWA-Ar Total Score: 2 COWS (PN) - Opiate Withdrawal Resting Pulse: 0= [place] 80 or Below Sweatin= No chills or Flushing Restless Observation: 0= Sits Still Pupil Size: 0= Normal to Room Light Bone or Joint Aches: 0= None Runny Nose/ Eye Tearin= None GI Upset > 30mins: 0= None Tremor Observation of Outstretched Hands: 1= Tremor [place], Not Seen Yawning Observation: 0= None Anxiety or Irritability: 2=Irritable/Anxious Goose Flesh Skin: 0=Smooth Skin COWS Score: 3
[2019-12-28] MEDS ORDERED: chlordiazePOXIDE HCL 10 MG CAPSULE PO ONE (05:00)
[2019-12-28] MEDS ORDERED: METHADONE HCL 5 MG TABLET (FOR DETOX USE ONLY) PO ONE (06:00)
== END 2019-12-27 10:10 | disposition home or self-care (01) | DRG 773 ==
LOC: YASAS 11:31 → Y3N 13:55
PROVIDERS: ADMIT Allergy & Immunology; ATTEND Allergy & Immunology
PROC: HZ2ZZZZ Detoxification Services for Substance Abuse Treatment (ICD-10-PCS; principal; 2019-12-23)
DX: F10.230 Alcohol dependence with withdrawal, uncomplicated (principal); F11.23 Opioid dependence with withdrawal; F17.210 Nicotine dependence, cigarettes, uncomplicated; Z91.5 Personal history of self-harm; Z88.8 Allergy status to other drugs, medicaments and biological substances; Z59.0 Homelessness
CPT/HCPCS: 36415; 80053; 85027; 86593; 93005; 93010

== ENCOUNTER 2021-02-05 20:35 | Emergency (ER) | payer OTHER ==
[2021-02-05 20:41] VITALS: TEMP 98.2; BMI 24.3
[2021-02-06] MEDS ORDERED: LIDOCAINE 5% TOPICAL PATCH TP ONE (00:46)
[2021-02-06] MEDS ORDERED: LIDOCAINE 5% TOPICAL PATCH ONE (00:49)
[2021-02-06 06:04] VITALS: BP 160/83; PULSE 97
[2021-02-06] MEDS ORDERED: LIDOCAINE PATCH REMOVAL MC SCH (22:00)
== END 2021-02-06 06:00 | disposition home or self-care (01) ==
LOC: JER 20:35
DX: F11.10 Opioid abuse, uncomplicated (principal); M54.9 Dorsalgia, unspecified; Z59.0 Homelessness
CPT/HCPCS: 70450-TC; 99284-25

== ENCOUNTER 2021-02-06 06:44 | Inpatient (IN) | payer OTHER ==
[2021-02-06 06:56] VITALS: BMI 23.6
[2021-02-06] MEDS ORDERED: hydrOXYzine PAMOATE 50 MG CAPSULE (FP) PO ONE (07:16)
[2021-02-06] MEDS ORDERED: TRIMETHOBENZAMIDE HCL 200MG/2ML INJ IM ONE ×2 (07:16→07:31)
[2021-02-06] MEDS ORDERED: cloNIDine HCL 0.1 MG TABLET PO ONE (07:16)
[2021-02-06] MEDS ORDERED: hydrOXYzine PAMOATE 25 MG CAPSULE (FP) PO ONE ×2 (07:30)
[2021-02-06] MEDS ORDERED: cloNIDine HCL 0.1 MG TABLET ONE (07:30)
[2021-02-06] MEDS ORDERED: IBUPROFEN 400 MG TABLET (FP) PO PRN (08:09)
[2021-02-06] MEDS ORDERED: ONDANSETRON *ODT* 4 MG TABLET SL PRN (08:09)
[2021-02-06] MEDS ORDERED: MAG HYDROX/AL HYDROX/SIMETH 30 ML UNIT-DOSE CUP PO PRN (08:09)
[2021-02-06] MEDS ORDERED: NICOTINE POLACRILEX 2 MG GUM BUC PRN (08:09)
[2021-02-06] MEDS ORDERED: ACETAMINOPHEN 325 MG TABLET (FP) PO PRN ×2 (08:09)
[2021-02-06] MEDS ORDERED: MENTHOL/PHENOL 1 EACH UD MM PRN (08:09)
[2021-02-06] MEDS ORDERED: MAGNESIUM HYDROX 2400MG/30ML ORAL SUSPENSION 30 ML CUP PO PRN (08:09)
[2021-02-06] MEDS ORDERED: MAGNESIUM CITRATE 300 ML BOTTLE PO PRN (08:09)
[2021-02-06] MEDS ORDERED: BISMUTH SUBSALICYLATE 524 MG/30 ML UD PO PRN (08:09)
[2021-02-06] MEDS ORDERED: METHADONE HCL 10 MG TABLET (FOR DETOX USE ONLY) PO ONE (08:45)
[2021-02-06] MEDS ORDERED: diazePAM 5 MG TABLET ONE (09:22)
[2021-02-06] MEDS ORDERED: METHADONE HCL 10 MG TABLET (FOR DETOX USE ONLY) ONE (09:23)
[2021-02-06] MEDS ORDERED: ONDANSETRON *ODT* 4 MG TABLET ONE (09:23)
[2021-02-06] MEDS: diazePAM 5 MG TABLET PO PRN ×2 (09:27→18:21)
[2021-02-06] MEDS ORDERED: METHOCARBAMOL 500 MG TABLET ONE (10:43)
[2021-02-06] MEDS: METHOCARBAMOL 500 MG TABLET PO PRN ×2 (11:05→18:22)
[2021-02-06] MEDS: BACITRACIN 0.9 GM PACKET TP SCH ×2 (14:39→22:13)
[2021-02-06] MEDS: NICOTINE 7 MG/24 HOURS TOPICAL PATCH TD SCH (14:40)
[2021-02-06] MEDS: hydrOXYzine PAMOATE 25 MG CAPSULE (FP) PO SCH ×2 (14:41→18:27)
[2021-02-06] MEDS: PRENATAL VITAMINS W/ FOLIC ACID TABLET (FP) PO SCH (14:41)
[2021-02-06] MEDS: cloNIDine HCL 0.1 MG TABLET PO PRN ×2 (18:22→22:13)
[2021-02-06] MEDS: MELATONIN 5 MG TABLETS PO SCH (22:13)
[2021-02-06] MEDS: THIAMINE HCL 100 MG TABLET (FP) PO SCH (22:13)
[2021-02-07] MEDS: cloNIDine HCL 0.1 MG TABLET PO PRN ×2 (07:13→17:48)
[2021-02-07] MEDS: hydrOXYzine PAMOATE 25 MG CAPSULE (FP) PO SCH ×3 (07:16→13:53)
[2021-02-07] MEDS: diazePAM 5 MG TABLET PO PRN ×2 (07:16→22:47)
[2021-02-07] MEDS ORDERED: METHADONE HCL 10 MG TABLET (FOR DETOX USE ONLY) ONE (08:49)
[2021-02-07] MEDS ORDERED: METHADONE HCL 5 MG TABLET (FOR DETOX USE ONLY) ONE (08:49)
[2021-02-07] MEDS: amLODIPine BESYLATE 5 MG TABLET (FP) PO SCH (09:17)
[2021-02-07] MEDS: BACITRACIN 0.9 GM PACKET TP SCH ×2 (09:17→22:45)
[2021-02-07] MEDS: PRENATAL VITAMINS W/ FOLIC ACID TABLET (FP) PO SCH (09:17)
[2021-02-07] MEDS: NICOTINE 7 MG/24 HOURS TOPICAL PATCH TD SCH (09:17)
[2021-02-07] MEDS ORDERED: METHADONE (DETOX) 20 MG, METHADONE (DETOX) 5 MG PO ONE (10:00)
[2021-02-07 11:40] LABS: HEMATOCRIT 47.5 % (35.4-49); HEMOGLOBIN 16.5 GM/dL (11.7-16.9); MCH 32.1 pg (25.7-33.7); MCHC 34.8 g/dl (32.0-35.9); MEAN CELL VOLUME 92.2 fl (80-96); MEAN PLT VOLUME 9.5 fl (7.5-11.1); PLATELET COUNT 261 K/MM3 (134-434); RBC 5.15 M/mm3 (4.00-5.60); RDW 12.9 % (11.9-15.9); WHITE BLOOD COUNT 12.9 K/mm3 (4.0-10.0)
[2021-02-07 11:41] LABS: POTASSIUM 3.5 mmol/L (3.5-5.1)
[2021-02-07 11:47] LABS: CALCIUM 9.9 mg/dL (8.5-10.1)
[2021-02-07 11:48] LABS: ALBUMIN 4.4 g/dl (3.4-5.0); BLOOD UREA NITROGEN 14.2 mg/dL (7-18)
[2021-02-07 11:51] LABS: CREATININE 0.7 mg/dL (0.55-1.3)
[2021-02-07 11:52] LABS: BILIRUBIN,TOTAL 1.7 mg/dL (0.2-1)
[2021-02-07] MEDS: METHOCARBAMOL 500 MG TABLET PO PRN ×2 (13:22→22:47)
[2021-02-07 17:24] LABS: EPI CELLS 10 /uL (0-25.1); HYALINE CASTS 0 /uL (0-3.1); URINE APPEARANCE CLEAR; URINE BACTERIA 554 /uL (0-1359); URINE BILIRUBIN NEGATIVE (NEGATIVE); URINE COLOR YELLOW; URINE GLUCOSE (UA) TRACE (NEGATIVE); URINE KETONE 1+ (NEGATIVE); URINE LEUK ESTERASE NEGATIVE (NEGATIVE); URINE NITRITE NEGATIVE (NEGATIVE); URINE PROTEIN 2+ (NEGATIVE); URINE RBC 27 /uL (0-23.9); URINE WBC 20 /uL (0-25.8)
[2021-02-07] MEDS: hydrOXYzine PAMOATE 25 MG CAPSULE (FP) PO PRN ×2 (17:48→22:45)
[2021-02-07] MEDS: MELATONIN 5 MG TABLETS PO SCH (22:45)
[2021-02-07] MEDS: THIAMINE HCL 100 MG TABLET (FP) PO SCH (22:45)
[2021-02-08] MEDS: hydrOXYzine PAMOATE 25 MG CAPSULE (FP) PO PRN (06:39)
[2021-02-08] MEDS: diazePAM 5 MG TABLET PO PRN ×2 (06:39→22:10)
[2021-02-08] MEDS: BACITRACIN 0.9 GM PACKET TP SCH ×2 (09:48→22:06)
[2021-02-08] MEDS: PRENATAL VITAMINS W/ FOLIC ACID TABLET (FP) PO SCH (09:48)
[2021-02-08] MEDS: amLODIPine BESYLATE 5 MG TABLET (FP) PO SCH (09:48)
[2021-02-08] MEDS: NICOTINE 7 MG/24 HOURS TOPICAL PATCH TD SCH (09:49)
[2021-02-08] MEDS: METHOCARBAMOL 500 MG TABLET PO PRN (09:49)
[2021-02-08] MEDS ORDERED: METHADONE HCL 10 MG TABLET (FOR DETOX USE ONLY) PO ONE (10:00)
[2021-02-08] MEDS: SULFAMETHOXAZOLE/TRIMETHOPRIM 800MG/160MG D.S. TABLET PO SCH ×2 (12:28→22:06)
[2021-02-08] MEDS ORDERED: IBUPROFEN 600 MG TABLET (FP) PO PRN (12:56)
[2021-02-08] MEDS: LIDOCAINE 5% TOPICAL PATCH TP SCH (14:08)
[2021-02-08] MEDS: METHOCARBAMOL 750 MG TAB PO PRN (14:08)
[2021-02-08 14:09] LABS: EPI CELLS 3.8 /uL (0-25.1); PH,URINE 6.5 (5.0-8.0); URINE APPEARANCE CLEAR; URINE BILIRUBIN NEGATIVE (NEGATIVE); URINE COLOR DK YELLOW; URINE GLUCOSE (UA) NEGATIVE (NEGATIVE); URINE KETONE TRACE (NEGATIVE); URINE LEUK ESTERASE NEGATIVE (NEGATIVE); URINE NITRITE NEGATIVE (NEGATIVE); URINE PROTEIN 1+ (NEGATIVE); URINE RBC 8.8 /uL (0-23.9); URINE UROBILINOGEN 0.2 mg/dL (0.2-1.0); URINE WBC 3.8 /uL (0-25.8)
[2021-02-08 14:10] LABS: HYALINE CASTS 0.25 /uL (0-3.1)
[2021-02-08] MEDS ORDERED: LIDOCAINE PATCH REMOVAL MC SCH (22:00)
[2021-02-08] MEDS: THIAMINE HCL 100 MG TABLET (FP) PO SCH (22:06)
[2021-02-08] MEDS: METHYL SALICYLATE/MENTHOL OINT 30 GM TUBE TP SCH (22:07)
[2021-02-08] MEDS: MELATONIN 5 MG TABLETS PO SCH (22:07)
[2021-02-09] MEDS: hydrOXYzine PAMOATE 25 MG CAPSULE (FP) PO PRN (06:35)
[2021-02-09] MEDS: diazePAM 5 MG TABLET PO PRN (06:35)
[2021-02-09] MEDS: METHOCARBAMOL 750 MG TAB PO PRN ×2 (06:36→12:32)
[2021-02-09] MEDS ORDERED: METHADONE HCL 5 MG TABLET (FOR DETOX USE ONLY) ONE (09:27)
[2021-02-09] MEDS ORDERED: METHADONE HCL 10 MG TABLET (FOR DETOX USE ONLY) ONE (09:27)
[2021-02-09] MEDS ORDERED: METHADONE (DETOX) 10 MG, METHADONE (DETOX) 5 MG PO ONE (10:00)
[2021-02-09] MEDS: PRENATAL VITAMINS W/ FOLIC ACID TABLET (FP) PO SCH (10:22)
[2021-02-09] MEDS: METHYL SALICYLATE/MENTHOL OINT 30 GM TUBE TP SCH (10:22)
[2021-02-09] MEDS: BACITRACIN 0.9 GM PACKET TP SCH (10:22)
[2021-02-09] MEDS: amLODIPine BESYLATE 5 MG TABLET (FP) PO SCH (10:22)
[2021-02-09] MEDS: SULFAMETHOXAZOLE/TRIMETHOPRIM 800MG/160MG D.S. TABLET PO SCH (10:22)
[2021-02-09] MEDS: NICOTINE 7 MG/24 HOURS TOPICAL PATCH TD SCH (10:23)
[2021-02-09] MEDS: LIDOCAINE 5% TOPICAL PATCH TP SCH (10:26)
[2021-02-09 12:06] LABS: BASO % 0.9 % (0-2.0); EOS % 4.1 % (0-4.5); HEMATOCRIT 45.1 % (35.4-49); HEMOGLOBIN 15.5 GM/dL (11.7-16.9); LYMPH % 33.8 % (8-40); MCH 32.2 pg (25.7-33.7); MCHC 34.4 g/dl (32.0-35.9); MEAN CELL VOLUME 93.8 fl (80-96); MEAN PLT VOLUME 8.9 fl (7.5-11.1); MONO % 10.2 % (3.8-10.2); PLATELET COUNT 225 K/MM3 (134-434); RBC 4.81 M/mm3 (4.00-5.60); RDW 13.4 % (11.9-15.9); WHITE BLOOD COUNT 6.9 K/mm3 (4.0-10.0)
[2021-02-09 12:26] LABS: POTASSIUM 3.9 mmol/L (3.5-5.1)
[2021-02-09 12:48] LABS: ALBUMIN 3.7 g/dl (3.4-5.0); BLOOD UREA NITROGEN 24.1 mg/dL (7-18)
[2021-02-09 12:49] LABS: CALCIUM 9.2 mg/dL (8.5-10.1)
[2021-02-09 12:51] LABS: CREATININE 0.9 mg/dL (0.55-1.3)
[2021-02-09 12:52] LABS: BILIRUBIN,TOTAL 1.1 mg/dL (0.2-1); TOT PROT 6.6 g/dl (6.4-8.2)
[2021-02-09 13:12] VITALS: TEMP 97.5
[2021-02-09 18:54] VITALS: BP 106/70; PULSE 88
[2021-02-09] MEDS ORDERED: QUEtiapine FUMARATE 50 MG TABLET PO SCH (22:00)
[2021-02-10] MEDS ORDERED: FLUoxetine HCL 10 MG CAPSULE PO SCH (10:00)
[2021-02-10] MEDS ORDERED: METHADONE HCL 10 MG TABLET (FOR DETOX USE ONLY) PO ONE (10:00)
[2021-02-11] MEDS ORDERED: METHADONE HCL 5 MG TABLET (FOR DETOX USE ONLY) PO ONE (06:00)
== END 2021-02-09 19:10 | disposition home or self-care (01) | DRG 773 ==
LOC: YASAS 06:44 → Y3N 17:53
PROVIDERS: ADMIT Allergy & Immunology; ATTEND Allergy & Immunology
PROC: HZ2ZZZZ Detoxification Services for Substance Abuse Treatment (ICD-10-PCS; principal; 2021-02-06)
DX: F11.23 Opioid dependence with withdrawal (principal); F12.20 Cannabis dependence, uncomplicated; F19.20 Other psychoactive substance dependence, uncomplicated; F17.213 Nicotine dependence, cigarettes, with withdrawal; F41.9 Anxiety disorder, unspecified; F19.24 Other psychoactive substance dependence with psychoactive substance-induced mood disorder; G47.00 Insomnia, unspecified; D72.829 Elevated white blood cell count, unspecified; I10 Essential (primary) hypertension; M54.5 Low back pain; S09.8XXA Other specified injuries of head, initial encounter; S00.83XA Contusion of other part of head, initial encounter; W22.8XXA Striking against or struck by other objects, initial encounter; Y92.238 Other place in hospital as the place of occurrence of the external cause; Y99.8 Other external cause status; Y93.89 Activity, other specified; Z86.69 Personal history of other diseases of the nervous system and sense organs; Z87.820 Personal history of traumatic brain injury; Z56.0 Unemployment, unspecified; Z59.0 Homelessness; Z91.19 Patient's noncompliance with other medical treatment and regimen
CPT/HCPCS: 36415; 72100-TC-FY; 80053; 81003; 85025; 85027; 86780; 87086; C9803; J0735; Q0162; U0003

== ENCOUNTER 2021-02-06 11:27 | Emergency (ER) | payer OTHER ==
[2021-02-06 11:48] VITALS: TEMP 99.2; BMI 23.6
[2021-02-06] MEDS ORDERED: LIDOCAINE 5% TOPICAL PATCH TP ONE (12:24)
[2021-02-06] MEDS ORDERED: METOCLOPRAMIDE HCL INJECTION 10 MG/2 ML VIAL IVPUSH ONE (12:40)
[2021-02-06] MEDS ORDERED: METOCLOPRAMIDE HCL INJECTION 10 MG/2 ML VIAL IM ONE (12:41)
[2021-02-06] MEDS ORDERED: METOCLOPRAMIDE HCL INJECTION 10 MG/2 ML VIAL ONE (13:20)
[2021-02-06] MEDS ORDERED: LIDOCAINE 5% TOPICAL PATCH ONE (13:21)
[2021-02-06] MEDS ORDERED: cloNIDine-TTS 0.2 MG/24 HOURS PATCH.TDWK TD STA (15:29)
[2021-02-06] MEDS ORDERED: amLODIPine BESYLATE 5 MG TABLET (FP) PO ONE (15:39)
[2021-02-06] MEDS ORDERED: amLODIPine BESYLATE 5 MG TABLET (FP) ONE (15:40)
[2021-02-06 15:52] VITALS: BP 170/88; PULSE 74
[2021-02-06] MEDS ORDERED: LIDOCAINE PATCH REMOVAL MC ONE (22:00)
== END 2021-02-06 15:53 | disposition home or self-care (01) ==
LOC: JER 11:27
PROC: 3E0233Z Introduction of Anti-inflammatory into Muscle, Percutaneous Approach (ICD-10-PCS; principal; 2021-02-06)
DX: S09.90XA Unspecified injury of head, initial encounter (principal)
CPT/HCPCS: 70450-TC; 99284-25

== ENCOUNTER 2024-07-19 08:27 | Inpatient (IN) | payer OTHER ==
[2024-07-19 08:49] VITALS: BMI 23.6
[2024-07-19] MEDS ORDERED: BENZONATATE 200 MG CAPSULE PO PRN (09:26)
[2024-07-19] MEDS ORDERED: NICOTINE POLACRILEX 2 MG LOZENGE BC PRN (09:26)
[2024-07-19] MEDS ORDERED: MAGNESIUM HYDROX 2400MG/30ML ORAL SUSPENSION 30 ML CUP PO PRN (09:26)
[2024-07-19] MEDS ORDERED: guaiFENesin 600 MG TABLET.ER (FP) PO PRN (09:26)
[2024-07-19] MEDS ORDERED: NALOXONE HCL 0.4 MG/ML VIAL IM PRN (09:26)
[2024-07-19] MEDS ORDERED: LOPERAMIDE HCL 2 MG CAPSULE PO PRN (09:26)
[2024-07-19] MEDS ORDERED: NALOXONE (NARCAN) HCL 4 MG/0.1 ML SPRAY NS PRN (09:26)
[2024-07-19] MEDS ORDERED: IBUPROFEN 400 MG TABLET (FP) PO PRN (09:26)
[2024-07-19] MEDS ORDERED: POLYETHYLENE GLYCOL (HEALTHYLAX) 3350 17 GM PACKET PO PRN (09:26)
[2024-07-19] MEDS ORDERED: NICOTINE POLACRILEX 2 MG GUM BUC PRN (09:26)
[2024-07-19] MEDS ORDERED: PRENATAL VITAMINS W/ FOLIC ACID TABLET (FP) PO ONE (09:52)
[2024-07-19] MEDS: PRENATAL VITAMINS W/ FOLIC ACID TABLET (FP) PO SCH (09:54)
[2024-07-19] MEDS ORDERED: TUBERCULIN PPD 5 TU/0.1ML VIAL ID ONE (13:10)
[2024-07-19] MEDS: MELATONIN 5 MG TABLETS PO SCH (21:34)
[2024-07-19] MEDS: THIAMINE 100 MG TABLET PO SCH (21:34)
[2024-07-20] MEDS: cloNIDine HCL 0.1 MG TABLET PO ONE (06:37)
[2024-07-20] MEDS: methaDONE HCL 40 MG DISPERSABLE TABLET PO SCH (06:37)
[2024-07-20] MEDS ORDERED: BISMUTH SUBSALICYLATE 262 MG/15 ML BTL PO PRN (09:05)
[2024-07-20] MEDS ORDERED: DICYCLOMINE HCL 10 MG CAPSULE PO PRN (09:05)
[2024-07-20] MEDS ORDERED: ONDANSETRON *ODT* 4 MG TABLET SL PRN (09:05)
[2024-07-20] MEDS: MAG HYDROX/AL HYDROX/SIMETH 30 ML UNIT-DOSE CUP PO PRN (09:05)
[2024-07-20 12:18] LABS: POTASSIUM 3.3 mmol/L (3.5-5.1)
[2024-07-20 12:23] LABS: ALBUMIN 3.6 g/dl (3.4-5.0); CALCIUM 9.3 mg/dL (8.5-10.1)
[2024-07-20 12:24] LABS: BLOOD UREA NITROGEN 9.3 mg/dL (7-18)
[2024-07-20 12:26] LABS: CREATININE 0.6 mg/dL (0.55-1.3)
[2024-07-20 12:28] LABS: BILIRUBIN,TOTAL 0.8 mg/dL (0.2-1); TOT PROT 7.2 g/dl (6.4-8.2)
[2024-07-20 12:35] LABS: HEMATOCRIT 36.2 % (35.4-49); HEMOGLOBIN 12.4 GM/dL (11.7-16.9); MCH 32.4 pg (25.7-33.7); MCHC 34.2 g/dl (32.0-35.9); MEAN CELL VOLUME 94.7 fl (80-96); MEAN PLT VOLUME 9.7 fl (7.5-11.1); PLATELET COUNT 202 10^3/uL (134-434); RBC 3.82 M/mm3 (4.00-5.60); WHITE BLOOD COUNT 14.9 K/mm3 (4.0-10.0)
[2024-07-20 12:47] LABS: SYPHILIS W/ RPR CONF NON-REACTIVE (NONREACTIVE)
[2024-07-20] MEDS: SULFAMETHOXAZOLE/TRIMETHOPRIM 800MG/160MG D.S. TABLET PO SCH (21:03)
[2024-07-20] MEDS: POTASSIUM CHLORIDE ORAL LIQUID 20 MEQ/15 ML PO SCH (21:04)
[2024-07-20] MEDS: hydrOXYzine PAMOATE 25 MG CAPSULE (FP) PO PRN (21:04)
[2024-07-20] MEDS: TOLNAFTATE 1% CREAM 15 GM TUBE TP SCH (21:05)
[2024-07-21] MEDS: amLODIPine BESYLATE 5 MG TABLET (FP) PO SCH (12:25)
[2024-07-21 12:54] LABS: BASO % 0.9 % (0-2.0); HEMATOCRIT 40.9 % (35.4-49); HEMOGLOBIN 13.7 GM/dL (11.7-16.9); LYMPH % 31.6 % (8-40); MCH 31.3 pg (25.7-33.7); MCHC 33.4 g/dl (32.0-35.9); MEAN CELL VOLUME 93.7 fl (80-96); MEAN PLT VOLUME 8.7 fl (7.5-11.1); MONO % 9.7 % (3.8-10.2); NEUT % 54.8 % (42.8-82.8); PLATELET COUNT 274 10^3/uL (134-434); RBC 4.37 M/mm3 (4.00-5.60); RDW 13.4 % (11.9-15.9); WHITE BLOOD COUNT 7.7 K/mm3 (4.0-10.0)
[2024-07-21 13:08] LABS: POTASSIUM 4.8 mmol/L (3.5-5.1)
[2024-07-21 13:10] LABS: CALCIUM 9.3 mg/dL (8.5-10.1)
[2024-07-21 13:11] LABS: ALBUMIN 3.3 g/dl (3.4-5.0); BLOOD UREA NITROGEN 7.2 mg/dL (7-18)
[2024-07-21 13:14] LABS: CREATININE 0.7 mg/dL (0.55-1.3)
[2024-07-21 13:15] LABS: BILIRUBIN,TOTAL 0.5 mg/dL (0.2-1)
[2024-07-21 17:16] LABS: URINE APPEARANCE CLEAR; URINE BILIRUBIN NEGATIVE (NEGATIVE); URINE COLOR YELLOW; URINE GLUCOSE (UA) NEGATIVE (NEGATIVE); URINE KETONE NEGATIVE (NEGATIVE); URINE LEUK ESTERASE NEGATIVE (NEGATIVE); URINE NITRITE NEGATIVE (NEGATIVE); URINE PROTEIN NEGATIVE (NEGATIVE)
[2024-07-21] MEDS: GABAPENTIN 100 MG CAPSULE PO SCH (21:56)
[2024-07-22] MEDS: ACETAMINOPHEN 325 MG TABLET (FP) PO PRN (21:07)
[2024-07-23] MEDS: METHOCARBAMOL 500 MG TABLET PO PRN (21:43)
[2024-07-26] MEDS: amLODIPine BESYLATE 2.5 MG TABLET (FP) PO SCH (11:58)
[2024-07-26] MEDS: MELATONIN 5 MG TABLETS PO SCH (21:03)
[2024-07-29] MEDS: QUEtiapine FUMARATE 100 MG TABLET (FP) PO SCH (21:27)
[2024-07-30] MEDS: FLUoxetine HCL 10 MG CAPSULE PO SCH (10:44)
[2024-08-02] MEDS: methaDONE HCL 40 MG DISPERSABLE TABLET PO SCH (06:13)
[2024-08-02] MEDS: OLANZapine 10 MG TABLET PO SCH (21:35)
[2024-08-02] MEDS: diphenhydrAMINE HCL 25 MG CAPSULE (FP) PO SCH (21:35)
[2024-08-05] MEDS: BENZOCAINE/MENTHOL (CHLORASEPTIC ) LOZENGE MM PRN (10:12)
[2024-08-09] MEDS: methaDONE HCL 40 MG DISPERSABLE TABLET PO SCH (06:40)
[2024-08-10] MEDS: FAMOTIDINE 20 MG TABLET PO SCH (12:08)
[2024-08-10] MEDS: GABAPENTIN 300 MG CAPSULE PO SCH (21:05)
[2024-08-10] MEDS: SUVOREXANT 10 MG TABLET PO PRN (21:06)
[2024-08-12] MEDS: IBUPROFEN 600 MG TABLET (FP) PO PRN (08:49)
[2024-08-12] MEDS: HEPATITIS A VIRUS VACCINE/PF 1440 UNIT/1 ML IM ONE (15:26)
[2024-08-16] MEDS: methaDONE HCL 40 MG DISPERSABLE TABLET PO SCH (06:19)
[2024-08-16 06:23] VITALS: TEMP 97.8
[2024-08-16 08:54] VITALS: BP 130/71; PULSE 87; RESP 16
[2024-08-16] MEDS ORDERED: SUVOREXANT 10 MG TABLET PO PRN (22:00)
== END 2024-08-16 09:25 | disposition home or self-care (01) | DRG 772 ==
LOC: YASAS 08:27 → Y3W 11:57
PROVIDERS: ADMIT Psychiatry & Neurology Pain Medicine; ATTEND Psychiatry & Neurology Pain Medicine
PROC: HZ42ZZZ Group Counseling for Substance Abuse Treatment, Cognitive-Behavioral (ICD-10-PCS; principal; 2024-07-19)
DX: F10.20 Alcohol dependence, uncomplicated (principal); F12.20 Cannabis dependence, uncomplicated; F17.210 Nicotine dependence, cigarettes, uncomplicated; F41.9 Anxiety disorder, unspecified; F31.9 Bipolar disorder, unspecified; G47.00 Insomnia, unspecified; E87.6 Hypokalemia; I10 Essential (primary) hypertension; K21.9 Gastro-esophageal reflux disease without esophagitis; B35.3 Tinea pedis; Z86.59 Personal history of other mental and behavioral disorders; Z56.0 Unemployment, unspecified; Z59.02 Unsheltered homelessness
CPT/HCPCS: 36415; 80053; 80305; 80307; 81003; 82140; 85025; 85027; 86780; 86803; 87086; 87811; 90632; 93005; 93010

== ENCOUNTER 2024-09-16 13:48 | Inpatient (IN) | payer OTHER ==
[2024-09-16 14:26] VITALS: BMI 25.0
[2024-09-16] MEDS ORDERED: BENZOCAINE/MENTHOL (CHLORASEPTIC ) LOZENGE MM PRN (15:27)
[2024-09-16] MEDS ORDERED: NALOXONE (NARCAN) HCL 4 MG/0.1 ML SPRAY NS PRN (15:27)
[2024-09-16] MEDS ORDERED: POLYETHYLENE GLYCOL (HEALTHYLAX) 3350 17 GM PACKET PO PRN (15:27)
[2024-09-16] MEDS ORDERED: IBUPROFEN 600 MG TABLET (FP) PO PRN (15:27)
[2024-09-16] MEDS ORDERED: guaiFENesin 600 MG TABLET.ER (FP) PO PRN (15:27)
[2024-09-16] MEDS ORDERED: NALOXONE (NYS OPIOID OVERDOSE PROGRAM) 4 MG/0.1 ML SPRAY NS PRN (15:27)
[2024-09-16] MEDS ORDERED: hydrOXYzine PAMOATE 25 MG CAPSULE (FP) PO PRN (15:27)
[2024-09-16] MEDS ORDERED: IBUPROFEN 400 MG TABLET (FP) PO PRN (15:27)
[2024-09-16] MEDS ORDERED: BENZONATATE 200 MG CAPSULE PO PRN (15:27)
[2024-09-16] MEDS ORDERED: NICOTINE POLACRILEX 4 MG GUM BUC PRN (15:27)
[2024-09-16] MEDS ORDERED: chlordiazePOXIDE HCL 25 MG CAPSULE PO PRN (15:27)
[2024-09-16] MEDS ORDERED: ACETAMINOPHEN 325 MG TABLET (FP) PO PRN (15:27)
[2024-09-16] MEDS ORDERED: DICYCLOMINE HCL 10 MG CAPSULE PO PRN (15:27)
[2024-09-16] MEDS ORDERED: LOPERAMIDE HCL 2 MG CAPSULE PO PRN (15:27)
[2024-09-16] MEDS ORDERED: MAGNESIUM HYDROX 2400MG/30ML ORAL SUSPENSION 30 ML CUP PO PRN (15:27)
[2024-09-16] MEDS ORDERED: BISMUTH SUBSALICYLATE 262 MG/15 ML BTL PO PRN (15:27)
[2024-09-16] MEDS ORDERED: PRENATAL VITAMINS W/ FOLIC ACID TABLET (FP) PO ONE (16:06)
[2024-09-16] MEDS: PRENATAL VITAMINS W/ FOLIC ACID TABLET (FP) PO SCH (16:08)
[2024-09-16] MEDS: buPROPion HCL 75 MG TABLET PO SCH (17:53)
[2024-09-16] MEDS: chlordiazePOXIDE HCL 25 MG CAPSULE PO SCH (17:54)
[2024-09-16] MEDS: METHOCARBAMOL 500 MG TABLET PO PRN (22:07)
[2024-09-16] MEDS: MELATONIN 5 MG TABLETS PO SCH (22:07)
[2024-09-16] MEDS: THIAMINE 100 MG TABLET PO SCH (22:07)
[2024-09-17] MEDS: methaDONE HCL 40 MG DISPERSABLE TABLET PO ONE (08:25)
[2024-09-17 12:02] LABS: CHLORIDE 106 mmol/L (98-107); POTASSIUM 4.1 mmol/L (3.5-5.1); SODIUM 137 mmol/L (136-145)
[2024-09-17 12:05] LABS: ALBUMIN 3.4 g/dl (3.4-5.0); ANION GAP 3 mmol/L (4-13); CALCIUM 8.3 mg/dL (8.5-10.1); CO2 28 mmol/L (21-32); GLUCOSE,RANDOM 94 mg/dL (74-106)
[2024-09-17 12:08] LABS: CREATININE 0.8 mg/dL (0.55-1.3); SGOT/AST 36 U/L (15-37); SGPT/ALT 26 U/L (13-61)
[2024-09-17 12:10] LABS: BILIRUBIN,TOTAL 0.5 mg/dL (0.2-1); HEMOGLOBIN 12.1 GM/dL (11.7-16.9); MCH 32.4 pg (25.7-33.7); MCHC 35.7 g/dl (32.0-35.9); MEAN CELL VOLUME 90.7 fl (80-96); MEAN PLT VOLUME 8.9 fl (7.5-11.1); PLATELET COUNT 168 10^3/uL (134-434); RBC 3.74 M/mm3 (4.00-5.60); RDW 14.5 % (11.9-15.9); TOT PROT 6.4 g/dl (6.4-8.2)
[2024-09-17 12:11] LABS: ALK PHOS 85 U/L (45-117)
[2024-09-17] MEDS: QUEtiapine FUMARATE 100 MG TABLET (FP) PO SCH (22:03)
[2024-09-18] MEDS: chlordiazePOXIDE HCL 25 MG CAPSULE PO SCH (05:55)
[2024-09-18] MEDS: methaDONE HCL 40 MG DISPERSABLE TABLET PO SCH (06:16)
[2024-09-18] MEDS: ONDANSETRON *ODT* 4 MG TABLET SL PRN (07:51)
[2024-09-18] MEDS: amLODIPine BESYLATE 5 MG TABLET (FP) PO SCH (10:23)
[2024-09-18] MEDS: FLUoxetine HCL 10 MG CAPSULE PO SCH (10:23)
[2024-09-19] MEDS ORDERED: chlordiazePOXIDE HCL 10 MG CAPSULE PO PRN
[2024-09-19] MEDS: chlordiazePOXIDE HCL 10 MG CAPSULE PO SCH (05:52)
[2024-09-19] MEDS: MAG HYDROX/AL HYDROX/SIMETH 30 ML UNIT-DOSE CUP PO PRN (22:06)
[2024-09-20] MEDS: chlordiazePOXIDE HCL 10 MG CAPSULE PO SCH (05:18)
[2024-09-20] MEDS: TOLNAFTATE 1% CREAM 15 GM TUBE TP PRN (22:09)
[2024-09-21] MEDS: chlordiazePOXIDE HCL 10 MG CAPSULE PO ONE (05:47)
[2024-09-21 13:26] VITALS: BP 110/71; PULSE 59; RESP 17; TEMP 97.3
== END 2024-09-21 14:51 | disposition other institution (70) | DRG 773 ==
LOC: YASAS 13:48 → Y3N 15:45
PROVIDERS: ADMIT Allergy & Immunology; ATTEND Surgery
PROC: HZ2ZZZZ Detoxification Services for Substance Abuse Treatment (ICD-10-PCS; principal; 2024-09-16)
DX: F10.230 Alcohol dependence with withdrawal, uncomplicated (principal); F11.20 Opioid dependence, uncomplicated; F17.210 Nicotine dependence, cigarettes, uncomplicated; F31.9 Bipolar disorder, unspecified; F19.24 Other psychoactive substance dependence with psychoactive substance-induced mood disorder; F41.9 Anxiety disorder, unspecified; F43.10 Post-traumatic stress disorder, unspecified; Z87.828 Personal history of other (healed) physical injury and trauma; Z56.0 Unemployment, unspecified; Z59.00 Homelessness unspecified
CPT/HCPCS: 36415; 80053; 80305; 80307; 85027; 86780; 93005; 93010; Q0162

== ENCOUNTER 2024-09-21 15:00 | Inpatient (IN) | payer OTHER ==
[2024-09-21] MEDS ORDERED: IBUPROFEN 600 MG TABLET (FP) PO PRN (15:31)
[2024-09-21] MEDS ORDERED: BENZOCAINE/MENTHOL (CHLORASEPTIC ) LOZENGE MM PRN (15:31)
[2024-09-21] MEDS ORDERED: LOPERAMIDE HCL 2 MG CAPSULE PO PRN (15:31)
[2024-09-21] MEDS ORDERED: ACETAMINOPHEN 325 MG TABLET (FP) PO PRN (15:31)
[2024-09-21] MEDS ORDERED: guaiFENesin 600 MG TABLET.ER (FP) PO PRN (15:31)
[2024-09-21] MEDS ORDERED: POLYETHYLENE GLYCOL (HEALTHYLAX) 3350 17 GM PACKET PO PRN (15:31)
[2024-09-21] MEDS ORDERED: NALOXONE HCL 0.4 MG/ML VIAL IVPUSH PRN (15:31)
[2024-09-21] MEDS ORDERED: NALOXONE (NARCAN) HCL 4 MG/0.1 ML SPRAY NS PRN (15:31)
[2024-09-21] MEDS ORDERED: MAGNESIUM HYDROX 2400MG/30ML ORAL SUSPENSION 30 ML CUP PO PRN (15:31)
[2024-09-21] MEDS ORDERED: hydrOXYzine PAMOATE 25 MG CAPSULE (FP) PO PRN (15:31)
[2024-09-21] MEDS ORDERED: METHOCARBAMOL 500 MG TABLET PO PRN (15:31)
[2024-09-21] MEDS ORDERED: BENZONATATE 200 MG CAPSULE PO PRN (15:31)
[2024-09-21] MEDS ORDERED: IBUPROFEN 400 MG TABLET (FP) PO PRN (15:31)
[2024-09-21] MEDS: MAG HYDROX/AL HYDROX/SIMETH 30 ML UNIT-DOSE CUP PO PRN (17:15)
[2024-09-21] MEDS: buPROPion HCL 75 MG TABLET PO SCH (19:19)
[2024-09-21] MEDS: GABAPENTIN 300 MG CAPSULE PO SCH (21:08)
[2024-09-21] MEDS: QUEtiapine FUMARATE 100 MG TABLET (FP) PO SCH (21:08)
[2024-09-21] MEDS: THIAMINE 100 MG TABLET PO SCH (21:08)
[2024-09-21] MEDS: MELATONIN 5 MG TABLETS PO SCH (21:09)
[2024-09-22] MEDS: methaDONE HCL 40 MG DISPERSABLE TABLET PO ONE (05:53)
[2024-09-22] MEDS: amLODIPine BESYLATE 2.5 MG TABLET (FP) PO SCH (09:33)
[2024-09-22] MEDS: PRENATAL VITAMINS W/ FOLIC ACID TABLET (FP) PO SCH (09:33)
[2024-09-22] MEDS: FLUoxetine HCL 10 MG CAPSULE PO SCH (10:57)
[2024-09-22] MEDS: buPROPion HCL 75 MG TABLET PO SCH (16:10)
[2024-09-22] MEDS: QUEtiapine FUMARATE 100 MG TABLET (FP) PO SCH (21:44)
[2024-09-23] MEDS: methaDONE HCL 40 MG DISPERSABLE TABLET PO SCH (06:01)
[2024-09-28] MEDS ORDERED: BISMUTH SUBSALICYLATE 524 MG/30 ML PO PRN (14:48)
[2024-09-28] MEDS ORDERED: DICYCLOMINE HCL 10 MG CAPSULE PO PRN (14:48)
[2024-10-01] MEDS: NALOXONE (NARCAN) HCL 4 MG/0.1 ML SPRAY NS ONE (08:24)
[2024-10-01] MEDS: TOLNAFTATE 1% CREAM 15 GM TUBE TP SCH (12:45)
[2024-10-04 06:44] VITALS: RESP 20
[2024-10-04] MEDS: NALOXONE (NYS OPIOID OVERDOSE PROGRAM) 4 MG/0.1 ML SPRAY NS PRN (08:51)
[2024-10-04 09:06] VITALS: BP 125/80; PULSE 74; TEMP 97.8
== END 2024-10-04 08:52 | disposition home or self-care (01) | DRG 772 ==
LOC: YASAS 15:00 → Y3NR 15:02 → Y3E 09-22 09:54
PROVIDERS: ADMIT Allergy & Immunology; ATTEND Psychiatry & Neurology Pain Medicine
PROC: HZ42ZZZ Group Counseling for Substance Abuse Treatment, Cognitive-Behavioral (ICD-10-PCS; principal; 2024-09-21)
DX: F11.20 Opioid dependence, uncomplicated (principal); F10.20 Alcohol dependence, uncomplicated; F12.20 Cannabis dependence, uncomplicated; F17.210 Nicotine dependence, cigarettes, uncomplicated; F19.282 Other psychoactive substance dependence with psychoactive substance-induced sleep disorder; F19.24 Other psychoactive substance dependence with psychoactive substance-induced mood disorder; F41.9 Anxiety disorder, unspecified; F32.A Depression, unspecified; F43.10 Post-traumatic stress disorder, unspecified; B35.1 Tinea unguium; R19.7 Diarrhea, unspecified
CPT/HCPCS: 36415; 86803; 87811